=== PATIENT | male | born 1990 | race Caucasian/White ===

== ENCOUNTER 2018-05-28 06:34 | Observation (INO) | payer BC, OTHER ==
[2018-05-28] MEDS ORDERED: NORMAL SALINE 1000 ML 1,000 ML IV ONE ×2 (06:43→06:50)
[2018-05-28] MEDS ORDERED: ONDANSETRON 4 MG TAB.RAPDIS PO ONE (07:06)
[2018-05-28 07:35] LABS: ABSOLUTE BASOPHILS # (AUTO) 0.1 10^3/uL (0.0-0.2); ABSOLUTE EOSINOPHILS # (AUTO) 0.1 10^3/uL (0.0-0.6); ABSOLUTE LYMPHOCYTES (AUTO) 2.2 10^3/uL (0.5-4.7); ABSOLUTE MONOCYTES (AUTO) 0.7 10^3/uL (0.1-1.4); ABSOLUTE NEUT (AUTO) 7.7 10^3/uL (1.7-8.2); BASOPHILS % (AUTO) 0.5 % (0-2); EOSINOPHILS % (AUTO) 1.1 % (0-6); HEMATOCRIT 43.9 % (37.9-51.0); HEMOGLOBIN 15.2 g/dL (13.5-17.0); LYMPHOCYTES % (AUTO) 20.3 % (13-45); MEAN CORPUSCULAR HEMOGLOBIN 29.2 pg (27.0-33.4); MEAN CORPUSCULAR HGB CONC 34.6 g/dL (32.0-36.0); MEAN CORPUSCULAR VOLUME 85 fl (80-97); MONOCYTES % (AUTO) 6.7 % (3-13); PLATELET COUNT 305 10^3/uL (150-450); RED CELL DISTRIBUTION WIDTH 13.1 % (11.5-14.0); SEGMENTED NEUTROPHILS % (AUTO) 71.4 % (42-78); TOTAL CELLS COUNTED % (AUTO) 100 %; WHITE BLOOD COUNT 10.8 10^3/uL (4.0-10.5)
[2018-05-28 07:49] LABS: ALANINE AMINOTRANSFERASE 29 U/L (21-72); ALBUMIN 4.3 g/dL (3.5-5.0); ALKALINE PHOSPHATASE 60 U/L (38-126); ANION GAP 11 (5-19); ASPARTATE AMINO TRANSFERASE 22 U/L (17-59); BILIRUBIN,DIRECT 0.3 mg/dL (0.0-0.4); BILIRUBIN,TOTAL 0.3 mg/dL (0.2-1.3); BLOOD UREA NITROGEN 16 mg/dL (7-20); CALCIUM 9.2 mg/dL (8.4-10.2); CARBON DIOXIDE 29 mmol/L (22-30); CHLORIDE 103 mmol/L (98-107); GLUCOSE 106 mg/dL (75-110); LIPASE 38.5 U/L (23-300); POTASSIUM 4.1 mmol/L (3.6-5.0); SODIUM 142.6 mmol/L (137-145); TOTAL PROTEIN 7.3 g/dL (6.3-8.2)
--- NOTE | 2018-05-28 08:12 | RADIOLOGY REPORT (SQ) ---
EXAM DESCRIPTION: U/S ABDOMEN LIMITED W/O DOP COMPLETED DATE/TIME: 05/28/2018 8:00 am REASON FOR STUDY: ruq pain COMPARISON: None. TECHNIQUE: Dynamic and static grayscale images acquired of the abdomen and recorded on PACS. Additio nal selected color Doppler and spectral images recorded. LIMITATIONS: None. FINDINGS: PANCREAS: No masses. Visualized pancreatic duct normal caliber. LIVER: No masses. Echotexture normal. LIVER VASCULATURE: Normal directional flow of the main portal vein and hepatic veins. GALLBLADDER: 2 cm stone in the gallbladder neck. No pericholecystic fluid. ULTRASOUND-DETECTED CELIS'S SIGN: Negative. INTRAHEPATIC DUCTS AND COMMON DUCT: CBD and intrahepatic ducts normal caliber. No filling defects. INFERIOR VENA CAVA: Normal flow. AORTA: No aneurysm. RIGHT KIDNEY: Normal size. Normal echogenicity. No solid or suspicious masses. No hydronephrosis. No calcifications. PERITONEAL AND RIGHT PLEURAL SPACE: No ascites or effusions. OTHER: No other significant findings. IMPRESSION: Gallstone. TECHNICAL DOCUMENTATION: JOB ID: [id number] [employer]- All Rights Reserved Reading location - IP/workstation name: [email or web address]
--- NOTE | 2018-05-28 09:49 | ER Document Report ---
ED General - General Chief Complaint: Abdominal Pain Stated Complaint: ABDOMINAL PAIN Time Seen by Provider: 05/28/18 06:42 - HPI Patient complains to provider of: Right upper quadrant abdominal pain Notes: Patient coming in for evaluation of right upper quadrant abdominal pain. Patient states no fever chills nausea vomiting diarrhea has had known gallbladder disease with a 2 cm stone found on ultrasound forms outpatient basis approximately 1 month ago. Patient states pain started after eating cookies night prior to arrival. Patient is been n.p.o. since 2:00 earlier this morning. Advised patient does have history of hypertension. Patient resting healthy upon my evaluation. States recently 5 episodes similar pain - Related Data Allergies/Adverse Reactions: No Known Allergies Allergy (Unverified 05/28/18 08:13) Past Medical History - Social History Smoking Status: Never Smoker Chew tobacco use (# tins/day): No Frequency of alcohol use: Occasional Drug Abuse: None Family History: Reviewed & Not Pertinent Patient has suicidal ideation: No Patient has homicidal ideation: No - Past Medical History Cardiac Medical History: Reports: Hx Hypertension Renal/ Medical History: Denies: Hx Peritoneal Dialysis Past Surgical History: Reports: Hx Appendectomy, Hx Orthopedic Surgery - right shoulder - Immunizations Hx Diphtheria, Pertussis, Tetanus Vaccination: Yes Review of Systems - Review of Systems Constitutional: No symptoms reported EENT: No symptoms reported Cardiovascular: No symptoms reported Respiratory: No symptoms reported Gastrointestinal: Abdominal pain Genitourinary: No symptoms reported Male Genitourinary: No symptoms reported Musculoskeletal: No symptoms reported Skin: No symptoms reported Hematologic/Lymphatic: No symptoms reported Neurological/Psychological: No symptoms reported -: Yes All other systems reviewed and negative Physical Exam - Vital signs Vitals: Temp Pulse Resp BP Pulse Ox 98 F 63 15 145/102 H 100 05/28/18 06:35 05/28/18 06:35 05/28/18 06:35 05/28/18 06:35 05/28/18 06:35 Interpretation: Normal - General General appearance: Appears well, Alert - HEENT Head: Normocephalic, Atraumatic Eyes: Normal Pupils: PERRL - Respiratory Respiratory status: No respiratory distress Chest status: Nontender Breath sounds: Normal Chest palpation: Normal - Cardiovascular Rhythm: Regular Heart sounds: Normal auscultation Murmur: No - Abdominal Inspection: Normal Distension: No distension Bowel sounds: Normal Tenderness: Tender - Right upper quadrant tenderness minimal no guarding or rebound Organomegaly: No organomegaly - Back Back: Normal, Nontender - Extremities General upper extremity: Normal inspection, Nontender, Normal color, Normal ROM , Normal temperature General lower extremity: Normal inspection, Nontender, Normal color, Normal ROM , Normal temperature, Normal weight bearing. No: Mike's sign - Neurological Neuro grossly intact: Yes Cognition: Normal Orientation: AAOx4 Hollister Coma Scale Eye Opening: Spontaneous Hollister Coma Scale Verbal: Oriented Hollister Coma Scale Motor: Obeys Commands Nereida Coma Scale Total: 15 Speech: Normal Motor strength normal: LUE, RUE, LLE, RLE Sensory: Normal - Psychological Associated symptoms: Normal affect, Normal mood - Skin Skin Temperature: Warm Skin Moisture: Dry Skin Color: Normal Course - Re-evaluation Re-evalutation: 05/28/18 11:20 Ultrasound again does redemonstrate a stone of the head of the gallbladder. Laboratory studies show no other significant pathology. Because the patient's recurrent symptoms did consult with surgerysurgery at bedside recommends going to the OR for definitive treatment. - Vital Signs Vital signs: Temp Pulse Resp BP Pulse Ox 98.0 F 79 16 132/73 H 99 05/28/18 08:58 05/28/18 08:58 05/28/18 08:58 05/28/18 08:58 05/28/18 08:58 - Laboratory Result Diagrams: 05/28/18 07:05 05/28/18 07:05 Laboratory results interpreted by me: 05/28/18 07:05 WBC 10.8 H Discharge - Discharge Clinical Impression: Symptomatic cholelithiasis Hypertension Qualifiers: Hypertension type: unspecified Qualified Code(s): I10 - Essential (primary) hypertension Condition: Good Admitting Provider: Surgicalist - [facility] Admitted: OR
[2018-05-28] MEDS ORDERED: BUPIVACAINE HCL 0.25 % INJ/PF (2.5 MG/1 ML) 30 ML VIAL ONE (10:11)
[2018-05-28] MEDS ORDERED: HYDROMORPHONE HCL INJ/PF 2 MG/ML AMPULE ONE (10:12)
[2018-05-28] MEDS ORDERED: FENTANYL CITRATE INJ/PF 100 MCG/2 ML AMPUL ONE ×2 (10:12→12:40)
[2018-05-28] MEDS ORDERED: ACETAMINOPHEN 1,000 MG/100 ML RTUPB IV ONE (10:12)
[2018-05-28] MEDS ORDERED: PROPOFOL INJ 200 MG/20 ML VIAL IV ONE (10:12)
[2018-05-28] MEDS ORDERED: MIDAZOLAM 2 MG/2 ML INJ ONE (10:12)
[2018-05-28] MEDS ORDERED: LIDOCAINE 2% INJ-PF (20 MG/ML) 10 ML AMPUL ONE (10:16)
--- NOTE | 2018-05-28 10:21 | PDOC H&P ---
History of Present Illness Admission Date/PCP: 05/28/18 09:54 Patient complains of: Abdominal pain History of Present Illness: BLANCO LALA is a 27 year old male sent to the emergency department complaining of abdominal pain right upper quadrant radiating back associated with nausea and bloating, no vomiting. Symptoms are similar to those earlier in the week. He has had 5 previous episodes. Ultrasonography on outpatient basis revealed gallstones. He was going to [facility] on an outpatient basis but came to the emergency department because of worsening pain early this morning. Repeat ultrasonography showed gallstones normal common bile duct. Surgery was consulted, he was advised admission, definitive management. Past Medical History Cardiac Medical History: Reports: Hypertension Past Surgical History Past Surgical History: Reports: Appendectomy, Orthopedic Surgery - right shoulder Social History Information Source: Patient Smoking Status: Never Smoker Hx Recreational Drug Use: No Hx Prescription Drug Abuse: No - Advance Directive Resuscitation Status: Full Code Family History Family History: Reviewed & Not Pertinent Parental Family History Reviewed: Yes Children Family History Reviewed: Yes Sibling(s) Family History Reviewed.: Yes Medication/Allergy Home Medications: Hydrocodone Bit/Acetaminophen [Vicodin 5-500 mg Tablet] 1 - 2 tab PO Q4H PRN # 15 tablet 05/24/13 Ibuprofen [Motrin 800 Mg Tablet] 800 mg PO Q6H #20 tablet 05/24/13 Allergies/Adverse Reactions: No Known Allergies Allergy (Unverified 05/28/18 08:13) Review of Systems Eyes: ABSENT: visual disturbances Ears: ABSENT: hearing changes Cardiovascular: ABSENT: chest pain, dyspnea on exertion, edema, orthropnea, palpitations Respiratory: ABSENT: cough, hemoptysis Gastrointestinal: PRESENT: as per HPI Genitourinary: ABSENT: dysuria, hematuria Musculoskeletal: ABSENT: joint swelling Integumentary: ABSENT: rash, wounds Neurological: ABSENT: abnormal gait, abnormal speech, confusion, dizziness, focal weakness, syncope Physical Exam Vital Signs: Temp Pulse Resp BP Pulse Ox 98.0 F 79 16 132/73 H 99 05/28/18 08:58 05/28/18 08:58 05/28/18 08:58 05/28/18 08:58 05/28/18 08:58 General appearance: PRESENT: no acute distress Head exam: PRESENT: normocephalic Neck exam: PRESENT: full ROM Respiratory exam: PRESENT: clear to auscultation sergio Cardiovascular exam: PRESENT: RRR Pulses: PRESENT: normal carotid pulses, normal radial pulses GI/Abdominal exam: PRESENT: other - Tender right upper quadrant with mild guarding Rectal exam: PRESENT: deferred Extremities exam: PRESENT: full ROM Musculoskeletal exam: PRESENT: full ROM Neurological exam: PRESENT: alert, awake, oriented to person, oriented to time, oriented to situation Skin exam: PRESENT: dry Results Impressions: Abdomen Ultrasound 05/28/18 06:43 IMPRESSION: Gallstone. Assessment & Plan - Diagnosis (1) Symptomatic cholelithiasis Is this a current diagnosis for this admission?: Yes Plan: Clinical impression: Symptomatic cholelithiasis with cholecystitis Recommendations: 1. Patient will be admitted kept n.p.o. on IV fluids and set up for laparoscopic, possible open cholecystectomy. The mechanics of the operation as well as an explanation of the risks benefits and alternatives were explained to the patient including bleeding, infection, bile duct injury, need for additional surgery. He and his mother expressed understanding and agreed to proceed. (2) Hypertension Is this a current diagnosis for this admission?: Yes - Time Time Spent: 30 to 50 Minutes Critical Time spent with patient: Less than 15 minutes Medications reviewed and adjusted accordingly: Yes Anticipated discharge: Home - Inpatient Certification Based on my medical assessment, after consideration of the patient's comorbidities, presenting symptoms, or acuity I expect that the services needed warrant INPATIENT care.: Yes I certify that my determination is in accordance with my understanding of Medicare's requirements for reasonable and necessary INPATIENT services [42 CFR 412.3e].: Yes Medical Necessity: Need For IV Fluids, Need for Pain Control, Need for IV Antibiotics, Need for Surgery
[2018-05-28] MEDS ORDERED: CEFAZOLIN INJ 1 GM VIAL ONE (10:24)
[2018-05-28] MEDS ORDERED: PROMETHAZINE HCL INJ 25 MG/1 ML VIAL IV PRN (11:08)
[2018-05-28] MEDS ORDERED: FENTANYL CITRATE INJ/PF 100 MCG/2 ML AMPUL IV PRN ×3 (11:08)
[2018-05-28] MEDS ORDERED: DIPHENHYDRAMINE HCL 50 MG/ML VIAL IV PRN (11:08)
[2018-05-28] MEDS ORDERED: MEPERIDINE HCL/PF INJ 25 MG/1 ML DISP.SYRIN IV PRN (11:08)
[2018-05-28] MEDS ORDERED: KETOROLAC TROMETHAMINE 10 MG TABLET PO PRN (11:40)
[2018-05-28] MEDS ORDERED: KETOROLAC TROMETHAMINE INJ/PF 30 MG/1 ML SDV IV PRN (11:40)
[2018-05-28] MEDS ORDERED: ONDANSETRON HCL INJ/PF 4 MG/2 ML SDV IV PRN (11:40)
--- NOTE | 2018-05-28 11:45 | Operative Report ---
Operative Report DATE OF SURGERY: 05/28/18 PREOPERATIVE DIAGNOSIS: Symptomatic cholelithiasis with cholecystitis POSTOPERATIVE DIAGNOSIS: Same with acute cholecystitis OPERATION: Laparoscopic cholecystectomy SURGEON: ROSE MARY GONZALEZ ANESTHESIA: GA TISSUE REMOVED OR ALTERED: 1 gallbladder with contents COMPLICATIONS: None ESTIMATED BLOOD LOSS: Scant INTRAOPERATIVE FINDINGS: See below PROCEDURE: After obtaining informed consent, the patient was taken to the operating room. General Anesthesia was induced; the arms were extended, and the abdomen was exposed, and prepped and draped in a sterile fashion. Instrumentation was set up for laparoscopic cholecystectomy. Surgical plan and surgical timeout were conducted. A vertical incision was made above the umbilicus, and a verres needle was inserted uneventfully into the peritoneal cavity. Pneumoperitoneum was established. The verres needle was removed and a 5 mm trocar was inserted and a 5 mm flexible laparoscope was inserted. Visualization of the peritoneal cavity confirmed safe uneventful entry. Under direct visualization 3 additional 5 mm ports were established, one in the subxiphoid position and second in the subcostal position. There were dense adhesions between the gallbladder which was acutely inflamed and the gastroduodenal area. Visualization of the hepatobiliary anatomy revealed no anatomic variations, however inspection was limited due to the dense adhesions.. A grasper was placed on the fundus of the gallbladder and the gallbladder is elevated over the right surface of the liver; a second grasper was used to grasp the adhesions which were then taken off of the gallbladder using hook cautery dissection under excellent visualization. Eventually we were able to place the second grasper on the infundibulum of the gallbladder. The neck of the gallbladder and junction with the cystic duct was dissected out. The Cystic artery was in its usual location medial and cephalad to the cystic duct. The cystic artery was surrounded with a right angle clamp, clipped twice proximally and divided with laparoscopic scissors. We now opened the triangle of Calot by dividing the peritoneal reflection on both the medial and lateral sides of the cystic duct infundibular junction. The critical view was obtained. We now milked the cystic duct of any possible stones, clipped the cystic duct approximately 2 times once distally and divided with scissors. The gallbladder was now removed from the undersurface of the liver using hook cautery dissection. The gallbladder had a large stone in it so we placed an Endobag through the supraumbilical port site, and install the gallbladder into the bag. The gallbladder and bag were removed uneventfully from the abdominal cavity through the super umbilical port site incision. There was no evidence of spillage of stones or bile. The specimen was examined, then passed off to pathology for permanent analysis. We returned to the peritoneal cavity check for bleeding, and evidence of bile leak, and there was none. We Confirmed satisfactory placement of clips on cystic duct and cystic artery were secured . Photo secured. At this point we felt the operation was complete. The subcutaneous tissue was then anesthetized with quarter percent Marcaine Sponge and needle counts are correct. All ports removed under direct visualization pneumoperitoneum evacuated, and 5 mm port wounds closed with 3-0 Vicryl suture, benzoin and Steri -Strips. The patient was extubated, and taken to the recovery room in stable condition.
[2018-05-28] MEDS ORDERED: OXYCODONE-ACETAMINOPHEN 5-325 MG TABLET ONE (12:03)
[2018-05-28] MEDS: OXYCODONE-ACETAMINOPHEN 5-325 MG TABLET PO PRN ×2 (12:03→16:08)
[2018-05-28] MEDS ORDERED: PROMETHAZINE HCL INJ 25 MG/1 ML VIAL ONE (12:40)
[2018-05-28] MEDS ORDERED: ROCURONIUM BROMIDE INJ 50 MG/5 ML VIAL IV ONE (16:50)
[2018-05-28] MEDS ORDERED: GLYCOPYRROLATE 1 MG/5 ML SYRINGE ONE (16:50)
[2018-05-28] MEDS ORDERED: ONDANSETRON HCL INJ/PF 4 MG/2 ML SDV ONE (16:50)
[2018-05-28] MEDS ORDERED: DEXAMETHASONE SOD PHOSPHATE INJ 4 MG/1 ML VIAL ONE (16:50)
[2018-05-28] MEDS ORDERED: NEOSTIGMINE METHYLSULFATE 10 MG/10 ML VIAL ONE (16:50)
[2018-05-28] MEDS ORDERED: SUCCINYLCHOLINE CHLORIDE INJ 200 MG/10 ML VIAL ONE (16:50)
[2018-05-28] MEDS: DOCUSATE SODIUM 100 MG CAPSULE PO SCH (18:21)
[2018-05-29] MEDS: DOCUSATE SODIUM 100 MG CAPSULE PO SCH (10:25)
[2018-05-29 11:21] VITALS: BP 145/102
--- NOTE | 2018-05-31 09:20 | DISCHARGE SUMMARY E ---
Discharge Summary NAME: BLANCO LALA : 1990 AGE: 27Y ADMITTED: 05/28/2018 DISCHARGED: 05/29/2018 FINAL DIAGNOSIS: Acute on chronic cholecystitis and cholelithiasis. PROCEDURE DONE: Laparoscopic cholecystectomy, 05/28/18, surgeon, Dr. Callahan. HOSPITAL COURSE: This is a 27-year-old male who came in with abdominal pains. Ultrasound of the gallbladder on admission, on 05/28/18 showed cholelithiasis possibly in the gallbladder neck. The patient was tender in the right upper quadrant. White count slightly elevated to 10.8. His LFTs were normal. The patient then underwent laparoscopic cholecystectomy for acute on chronic cholecystitis on 05/28/18. He was able to tolerate a soft diet without much pains on the discharge 05/29/18. The patient subsequently discharged improved on 05/29/18 with the above final diagnosis. The patient is advised to take ibuprofen p.r.n. for pain and to follow up with Dr. Callahan in the surgical clinic or with the nurse practitioner, Giulia Owen in about 2 weeks. DICTATING PHYSICIAN: DAISY MONTES DE OCA M.D. [id number] PHY#: [id number] ID: [id number] JOB#: [id number] ACCT: [id number] cc:Silvestre MILLIGAN M.D. [facility],
== END 2018-05-29 11:41 | disposition home or self-care (01) ==
LOC: ER 06:34 → EH 09:54 → INTOOBSV 09:54 → 2N 13:20
PROVIDERS: ATTEND Surgery
PROC: 0FT44ZZ Resection of Gallbladder, Percutaneous Endoscopic Approach (ICD-10-PCS; principal; 2018-05-28 13:45)
DX: K80.12 Calculus of gallbladder with acute and chronic cholecystitis without obstruction (principal); I10 Essential (primary) hypertension; Z90.49 Acquired absence of other specified parts of digestive tract
CPT/HCPCS: 99284; 36415; 83690; 85025; 80053; 88304 ×2; 76705; 47562; G0378 ×2; J2250; J0690; J3490 ×3; J1100; S0119; J3010; J1885; J1170; J2550; J0330; J2405; J7030; J2704; J0131; 790

== ENCOUNTER → 2020-11-01 | Outpatient (CLI) | payer OTHER ==
[~2020-11-01] MED LIST: COVID-19 VACCINE (PFIZER)/PF 30 MCG/0.3 ML VIAL IM ONE; EPINEPHRINE INJ/PF 1 MG/1 ML AMPULE IM PRN
== END ==
LOC: EMPHEALTH 09:16
PROVIDERS: ATTEND Internal Medicine
DX: Z23 Encounter for immunization (principal)
CPT/HCPCS: 91300

== ENCOUNTER → 2020-11-22 | Outpatient (CLI) | payer OTHER | LOC: EMPHEALTH 09:05 | PROVIDERS: ATTEND Internal Medicine | DX: Z23 Encounter for immunization (principal) | CPT/HCPCS: 91300 ==